=== PATIENT | female | born 1945 | race Caucasian/White ===

== ENCOUNTER → 2017-10-27 | Outpatient (CLI) | payer MEDICARE, OTHER ==
[~2017-10-27] MED LIST: AMOX500; ASCO500; CHOL10002; Coq-10100 MG; Cranberry500 M1; HYDCHL12.5; LOVA40; MELA3; NIAC500 PO; TURMERIC500 MG; VAGIFEM10 MCG; ZYRTEC10 M2
== END | disposition home or self-care (01) ==
LOC: LAB EV 09:38
DX: N39.0 Urinary tract infection, site not specified (principal)
CPT/HCPCS: 87086

== ENCOUNTER 2017-11-29 07:39 | Day surgery (SDC) | payer MEDICARE, OTHER ==
[~2017-11-29] VITALS: Ht 162.6 cm; Wt 75.9 kg
[~2017-11-29 07:39] MED LIST changes: -NIAC500 PO
[2017-11-29] MEDS ORDERED: NIAC500 PO (08:23)
== END 2017-11-29 10:00 | disposition home or self-care (01) ==
LOC: ORSCSDS 07:39
PROVIDERS: Internal Medicine Gastroenterology
PROC: 0DBM8ZX Excision of Descending Colon, Via Natural or Artificial Opening Endoscopic, Diagnostic (ICD-10-PCS; principal; 2017-11-29 09:00)
PROC: 0DBK8ZX Excision of Ascending Colon, Via Natural or Artificial Opening Endoscopic, Diagnostic (ICD-10-PCS; principal; 2017-11-29 09:00)
PROC: 0DBL8ZX Excision of Transverse Colon, Via Natural or Artificial Opening Endoscopic, Diagnostic (ICD-10-PCS; principal; 2017-11-29 09:00)
DX: Z12.11 Encounter for screening for malignant neoplasm of colon (principal); D12.4 Benign neoplasm of descending colon; D12.2 Benign neoplasm of ascending colon; D12.3 Benign neoplasm of transverse colon; I10 Essential (primary) hypertension; Z79.899 Other long term (current) drug therapy
CPT/HCPCS: 88305; J0330; J1980; J2405; J7120

== ENCOUNTER → 2018-04-24 | Outpatient (CLI) | payer MEDICARE, OTHER ==
[~2018-04-24] MED LIST changes: +NIAC500 PO
[2018-04-26 14:11] LABS: HPV 16 Negative (Negative); HPV 18 Negative (Negative); HPV OTHER HR TYPES Negative (Negative)
== END | disposition home or self-care (01) ==
LOC: LAB SHORT 09:54 → LAB 09:54
PROVIDERS: Obstetrics & Gynecology Gynecology
DX: Z91.89 Other specified personal risk factors, not elsewhere classified (principal)
CPT/HCPCS: 87624; G0123

== ENCOUNTER → 2019-05-08 | Outpatient (CLI) | payer MEDICARE, OTHER ==
[2019-05-10 16:07] LABS: HPV 16 Negative (Negative); HPV 18 Negative (Negative); HPV OTHER HR TYPES Negative (Negative)
== END | disposition home or self-care (01) ==
LOC: LAB SHORT 18:06 → LAB 18:06
PROVIDERS: Obstetrics & Gynecology Gynecology
DX: Z91.89 Other specified personal risk factors, not elsewhere classified (principal)
CPT/HCPCS: 87624; G0123

== ENCOUNTER → 2019-08-16 | Outpatient (CLI) | payer MEDICARE, OTHER | END | disposition home or self-care (01) | LOC: LAB SHORT 11:46 → PLD 11:46 | DX: D22.121 Melanocytic nevi of left upper eyelid, including canthus (principal) | CPT/HCPCS: 88305 ==

== ENCOUNTER → 2020-02-17 | Outpatient (CLI) | payer MEDICARE, OTHER | END | disposition home or self-care (01) | LOC: LAB SHORT 08:24 → LAB EV 08:24 | DX: N39.0 Urinary tract infection, site not specified (principal) | CPT/HCPCS: 87086 ==

== ENCOUNTER → 2020-03-19 | Outpatient (CLI) | payer MEDICARE, OTHER | END | disposition home or self-care (01) | LOC: LAB EV 09:27 → LAB SHORT 09:27 | DX: R30.9 Painful micturition, unspecified (principal) | CPT/HCPCS: 87086 ==

== ENCOUNTER → 2020-04-01 | Outpatient (CLI) | payer MEDICARE, OTHER | END | disposition home or self-care (01) | LOC: LAB SHORT 16:00 → LAB 16:00 | DX: N76.0 Acute vaginitis (principal) | CPT/HCPCS: 87070; 87077; 87186; 87205 ==

== ENCOUNTER → 2020-04-17 | Outpatient (CLI) | payer MEDICARE, OTHER | END | disposition home or self-care (01) | LOC: LAB SHORT 09:00 → LAB 09:00 | DX: N76.0 Acute vaginitis (principal) | CPT/HCPCS: 87070; 87205 ==

== ENCOUNTER → 2020-06-17 | Outpatient (CLI) | payer MEDICARE | END | disposition home or self-care (01) | LOC: LAB 12:05 → LAB SHORT 12:05 | DX: D48.5 Neoplasm of uncertain behavior of skin (principal) | CPT/HCPCS: 88305 ==

== ENCOUNTER 2020-10-06 06:38 | Day surgery (SDC) | payer MEDICARE ==
[~2020-10-06] VITALS: Ht 162.6 cm; Wt 75.8 kg
[~2020-10-06 06:38] MED LIST changes: +ASCORBIC ACID500 MG PO; +CRAN-MAX500 MG PO; +HYDROCHLOROTH12.5 MG PO; +VITAMIN D31000 UNI1 PO; +YUVAFEM10 MCG VAG; +ZYRTEC10 M2 PO
--- NOTE | 2020-10-06 07:45 | NUR ---
10/06/20 0745 Holly Hilton PT PREPPED AND READY FOR SURGERY, AWAITING HER TURN. HAS SPOKEN WITH BOTH DR. ANDERSON FOR ANESTHESIA AND . NO QUESTIONS. EYE IS DILATING NICELY. RESTING QUIETLY.
== END 2020-10-06 08:57 | disposition home or self-care (01) ==
LOC: ORSCSDS 06:38
PROVIDERS: Ophthalmology
PROC: 08RJ3JZ Replacement of Right Lens with Synthetic Substitute, Percutaneous Approach (ICD-10-PCS; principal; 2020-10-06 08:00)
DX: H25.11 Age-related nuclear cataract, right eye (principal); I10 Essential (primary) hypertension; E11.9 Type 2 diabetes mellitus without complications; Z79.899 Other long term (current) drug therapy
CPT/HCPCS: J2250; J3010; J3301; V2632

== ENCOUNTER 2021-09-21 00:42 | Inpatient (IN) | payer MEDICARE ==
[~2021-09-21] VITALS: Ht 162.6 cm; Wt 76.4 kg
[2021-09-21] MEDS ORDERED: LOSA50 PO (00:56)
[2021-09-21] MEDS ORDERED: Nitrofurantoin100 M1 PO (00:56)
[2021-09-21 01:34] LABS: Hematocrit 34.5 % (33.0-51.0); Hemoglobin 12.8 g/dL (11.5-16.0); Mean Corpuscular HGB 31.2 pg (26.0-34.0); Mean Corpuscular HGB Conc 37.1 g/dL (31.5-36.5); Mean Corpuscular Volume 84 fL (80-100); Mean Platelet Volume 9.3 fL (9.1-12.4); Platelet Count 299 K/mm3 (150-400); RDW Coefficient Variation 11.6 % (11.7-14.2); RDW Standard Deviation 35.4 fL (35.1-46.3); White Blood Cell Count 12.09 K/mm3 (4.00-11.30)
[2021-09-21 01:45] LABS: BAND PERCENT MAN 6 % (0-8); BASOPHILS PERCENT MAN 0 % (0-2); EOSINOPHILS ABSOLUTE MAN 0.24 K/mm3 (0.00-0.68); EOSINOPHILS PERCENT MAN 2 % (0-6); LYMPHOCYTES ABSOLUTE MAN 1.08 K/mm3 (0.84-5.20); LYMPHOCYTES PERCENT MAN 9 % (21-46); MONOCYTES ABSOLUTE MAN 0.72 K/mm3 (0.16-1.47); MONOCYTES PERCENT MAN 6 % (4-13); NEUTROPHILS ABSOLUTE MAN 10.03 K/mm3 (1.96-9.15); SEG NEUTROPHILS PERCENT MAN 77 % (41-73); TOTAL CELLS COUNTED 100
[2021-09-21 01:58] LABS: International Normalized Ratio 0.96; Prothrombin Time Results 10.1 Sec (9.7-11.5)
[2021-09-21 02:17] LABS: Alanine Aminotransfer (ALT/SGP 36 U/L (12-78); Albumin, Blood 3.3 g/dL (3.4-5.0); Albumin/Globulin Ratio 0.8 (0.8-1.8); Alk Phos 50 U/L (50-136); Anion Gap 12 mmol/L (6-16); Aspartate Aminotrans (AST/SGOT 42 U/L (12-37); Bilirubin, Total 1.5 mg/dL (0.1-1.0); Blood Urea Nitrogen 11 mg/dL (8-24); Bun/Creatinine Ratio 20.9 (12.0-20.0); CO2, Blood 21 mmol/L (21-32); Calcium, Blood 8.2 mg/dL (8.5-10.1); Chloride, Blood 83 mmol/L (98-108); Creatinine, Blood 0.53 mg/dL (0.40-1.00); Globulin, Blood 4.3 g/dL (2.2-4.0); Glomerular Filtration Rate >60 (60-); Glucose, Blood 143 mg/dL (70-99); Potassium, Blood 3.7 mmol/L (3.5-5.5); Sodium, Blood 116 mmol/L (136-145); Total Protein, Blood 7.6 g/dL (6.4-8.2)
[2021-09-21 03:28] LABS: Osmolality, Serum 243 mos/KG (275-300)
[2021-09-21 03:55] LABS: Influenza A, PCR NEGATIVE (NEGATIVE); Influenza B, PCR NEGATIVE (NEGATIVE); Resp Syncytial Virus, PCR NEGATIVE (NEGATIVE); SARS-Cov-2 (COVID-19) PCR, MMC NEGATIVE (NEGATIVE)
[2021-09-21 04:01] LABS: Source, Urine Clean Catch
[2021-09-21 04:10] LABS: Bilirubin, Urine Neg (Neg); Blood, Urine Neg (Neg); Glucose Qualitative, Urine Neg (Neg); Ketones, Urine 1+ (Neg); Leukocyte Esterase, Urine Neg (Neg); Nitrite, Urine Neg (Neg); Protein, Urine 2+ (Neg); Urobilinogen, Urine NORM (Normal)
[2021-09-21 04:33] LABS: Appearance, Urine Clear (Clear); Color, Urine Yellow (P-Yellow)
[2021-09-21 04:34] LABS: Red Blood Cells, Urine Not Seen /hpf (0-2); Squamous Epithelial Cells Few /hpf (Few); White Blood Cells, Urine Not Seen /hpf (0-5)
[2021-09-21 04:35] LABS: Amorphous Light (0-Heavy); Bacteria Rare /hpf
--- NOTE | 2021-09-21 05:00 | NUR ---
ASSUMED CARE PATIENT ARRIVED TO ICU A&O X 4. TRACKS TO SOUND AND FOLLOWS COMMANDS. 0.9% NACL INF WIDE OPEN INTO 20G IV IN LT FOREARM. 22G IV IN RT HAND SALINE LOCKED. PATIENT C/O NAUSEA AND HAS EMESIS BAG IN HAND, BUT STATES THAT IT IS IMPROVED FROM EARLIER IN THE ER. REPORT COMPLETED W/ ED RN.
--- NOTE | 2021-09-21 06:26 | NUR ---
SHIFT SUMMARY/AWAITING 3% NACL AWAITING 3% NACL FROM PHARMACY TO BEGIN INF. POWERGLIDE STARTED TO JUAN JOSE. PATIENT WAS ABLE TO STAND TO BEDSIDE COMMODE WITH STAFF ASSISTANCE. PATIENT REMAINED A&O X 4, ABLE TO ANSWER QUESTIONS APPROPRIATELY. NO VOMITING OR DIARRHEA SINCE ARRIVING FROM ED. LUNGS CLEAR T/O, ON ROOM AIR W/ SPO2 IN 90'S. NO OTHER CHANGES DURING SHIFT.
[2021-09-21 08:37] LABS: Anion Gap 11 mmol/L (6-16); Blood Urea Nitrogen 7 mg/dL (8-24); Bun/Creatinine Ratio 13.3 (12.0-20.0); CO2, Blood 22 mmol/L (21-32); Calcium, Blood 7.9 mg/dL (8.5-10.1); Chloride, Blood 89 mmol/L (98-108); Creatinine, Blood 0.53 mg/dL (0.40-1.00); Glomerular Filtration Rate >60 (60-); Glucose, Blood 105 mg/dL (70-99); Potassium, Blood 3.5 mmol/L (3.5-5.5); Sodium, Blood 122 mmol/L (136-145)
--- NOTE | 2021-09-21 11:17 | NUR ---
Pt. was alert and sitting up in bed. Nurse was finishing taking vitals. Quickly established rapport as pt. as I know her and her family. Pt. was in a pretty positive disposition, but was slightly unsettled by her hospitalization and getting a clear diagnosis of her health complications. Normalized the sitiuation. Listened epathetically until we were interrupted by a Code Red. Prayed with pt. and will monitor to see if she is getting any clarity about her diagnosis.
--- NOTE | 2021-09-21 14:06 | NUR ---
PT TRANSFERED TO UNIT RECIEVED REPORT VIA [employer] @ APPROX. 1350. PT TRANSFERED TO UNIT @ THIS TIME. ABLE TO SELF TRANSFER FROM WC TO BED. ORIENTATED TO ROOM. CALL LIGHT W/ IN REACH. DENIES N/V OR DIZZINESS @ THIS TIME. SPOUSE @ BEDSIDE @ THIS TIME.
[2021-09-21 14:09] LABS: Anion Gap 8 mmol/L (6-16); Blood Urea Nitrogen 7 mg/dL (8-24); Bun/Creatinine Ratio 9.4 (12.0-20.0); CO2, Blood 24 mmol/L (21-32); Calcium, Blood 8.1 mg/dL (8.5-10.1); Chloride, Blood 99 mmol/L (98-108); Creatinine, Blood 0.75 mg/dL (0.40-1.00); Glomerular Filtration Rate >60 (60-); Glucose, Blood 112 mg/dL (70-99); Potassium, Blood 3.6 mmol/L (3.5-5.5); Sodium, Blood 131 mmol/L (136-145)
[2021-09-21] MEDS ORDERED: MULTI-VITAMIN1 EAC2 PO (15:53)
[2021-09-21] MEDS ORDERED: Vitamin B Comple1 EA PO (15:54)
[2021-09-21] MEDS ORDERED: Magnesium250 MG PO (15:56)
[2021-09-21] MEDS ORDERED: CALCIUM 500-VI1 EAC6 PO (15:56)
[2021-09-21] MEDS ORDERED: ZINC50 M3 PO (16:01)
[2021-09-21] MEDS ORDERED: OMEGA-3 PO (16:02)
[2021-09-21] MEDS ORDERED: NIAC500 PO (16:03)
[2021-09-21] MEDS ORDERED: TURMERIC500 M2 PO (16:04)
[2021-09-21] MEDS ORDERED: XYZAL5 MG PO (16:05)
--- NOTE | 2021-09-21 17:13 | NUR ---
SHIFT SUMMARY PT A&O X4 AND IN PLEASENT MOOD SINCE ARRIVAL TO UNIT. TOLERATING PO INTAKE. PT @ BEDSIDE DURING VISITING HOURS. DENIES N/V AND DIZZINESS. VSS. CALL LIGHT W/IN REACH.
[2021-09-21 19:41] LABS: Anion Gap 9 mmol/L (6-16); Blood Urea Nitrogen 10 mg/dL (8-24); Bun/Creatinine Ratio 11.9 (12.0-20.0); CO2, Blood 24 mmol/L (21-32); Chloride, Blood 100 mmol/L (98-108); Creatinine, Blood 0.84 mg/dL (0.40-1.00); Glomerular Filtration Rate >60 (60-); Glucose, Blood 126 mg/dL (70-99); Potassium, Blood 3.8 mmol/L (3.5-5.5); Sodium, Blood 133 mmol/L (136-145)
[2021-09-22 01:16] LABS: BASOPHILS ABSOLUTE AUTO 0.04 K/mm3 (0.00-0.23); BASOPHILS PERCENT AUTO 1 % (0-2); EOSINOPHILS PERCENT AUTO 1 % (0-6); Hematocrit 32.9 % (33.0-51.0); Hemoglobin 11.5 g/dL (11.5-16.0); IMMATURE GRAN ABSOLUTE AUTO 0.04 K/mm3 (0.00-0.10); IMMATURE GRAN PERCENT AUTO 1 % (0-1); LYMPHOCYTES ABSOLUTE AUTO 2.76 K/mm3 (0.84-5.20); LYMPHOCYTES PERCENT AUTO 33 % (21-46); MONOCYTES ABSOLUTE AUTO 0.79 K/mm3 (0.16-1.47); MONOCYTES PERCENT AUTO 9 % (4-13); Mean Corpuscular HGB 30.4 pg (26.0-34.0); Mean Corpuscular Volume 87 fL (80-100); Mean Platelet Volume 9.2 fL (9.1-12.4); NEUTROPHILS ABSOLUTE AUTO 4.77 K/mm3 (1.96-9.15); NEUTROPHILS PERCENT AUTO 56 % (41-73); Platelet Count 292 K/mm3 (150-400); RDW Coefficient Variation 12.3 % (11.7-14.2); RDW Standard Deviation 39.7 fL (35.1-46.3); Red Blood Cell Count 3.78 M/mm3 (3.80-5.20)
[2021-09-22 02:03] LABS: Albumin, Blood 3.2 g/dL (3.4-5.0); Anion Gap 7 mmol/L (6-16); Blood Urea Nitrogen 13 mg/dL (8-24); Bun/Creatinine Ratio 16.5 (12.0-20.0); CO2, Blood 24 mmol/L (21-32); Chloride, Blood 103 mmol/L (98-108); Creatinine, Blood 0.79 mg/dL (0.40-1.00); Glomerular Filtration Rate >60 (60-); Glucose, Blood 98 mg/dL (70-99); Magnesium, Blood 2.3 mg/dL (1.6-2.4); Phosphorus, Blood 2.6 mg/dL (2.5-4.9); Sodium, Blood 134 mmol/L (136-145)
--- NOTE | 2021-09-22 05:56 | NUR ---
SHIFT SUMMARY NO ACUTE CHANGES. AOX3. SLOW TO RESPOND @TIMES. VSS. DENIES ANY DIZZINESS, GEE, PAIN, N/V/D OR DYSPNEA. LAST NA @134 THIS AM. PT HASNT HAD A BM SINCE BEING AT HOSPITAL. IND IN RM, CALL LIGHT IN REACH. WCTM.
[2021-09-22] MEDS ORDERED: ACET325 PO (11:41)
[2021-09-22] MEDS ORDERED: CEFD300 PO (11:43)
--- NOTE | 2021-09-22 12:42 | NUR ---
Pt. was sitting up in bed. Staff is preparing to discharge pt. this morning. Pt. showed confidence with regard to managing her health, but showed distress over a broken relationship with one of her [place] daughters. Provided empathetic listening, pastoral food counselor. Pt. displayed evidence of reduced stress, and verbalized an interest in bringing healing to the relationship. Prayed with pt. Discharge will happen today.
--- NOTE | 2021-09-22 13:47 | NUR ---
DISCHARGE PT DISCHARGED @ THIS TIME. PT PROVIDED W/ WRITTEN AND VERBAL DC INSTRUCTION, SPOUSE @ BEDSIDE. PT AND SPOUSE VERBALIZED UNDERSTANDING OF INSTRUCTION. VSS. TOLERATING PO INTAKE, DENIES N/V OR DIZZINESS. POWERGLIDE DC'ED. BELONGINGS IN HAND. ESCORTED TO [facility] VIA WC, SPOUSE PROVIDED TRANSPORT.
== END 2021-09-22 13:54 | disposition home or self-care (01) | DRG 872 ==
LOC: ER 00:42 → ICUW 05:14 → ICUE 05:14 → MEDS 13:59
PROVIDERS: Family Medicine; Student in an Organized Health Care Education/Training Program; ADMIT Internal Medicine
DX: A41.9 Sepsis, unspecified organism (principal); E87.1 Hypo-osmolality and hyponatremia; N39.0 Urinary tract infection, site not specified; R11.2 Nausea with vomiting, unspecified; Z20.822 Contact with and (suspected) exposure to COVID-19; R19.7 Diarrhea, unspecified; I10 Essential (primary) hypertension; Z90.89 Acquired absence of other organs; Z98.890 Other specified postprocedural states; Z88.6 Allergy status to analgesic agent; Z79.899 Other long term (current) drug therapy
CPT/HCPCS: 0241U; 80048; 80053; 80069; 81001; 83605; 83735; 83930; 83935; 84300; 84443; 85025; 85610; 85730; 86850; 86900; 86901; 93005; 93010; 96361; 96374; 99285-25; A9270; C1751; J0696; J1650; J2405; J7030; J7050

== ENCOUNTER → 2021-10-20 | Outpatient (CLI) | payer MEDICARE ==
[~2021-10-20] MED LIST changes: +ACET325 PO; +CALCIUM 500-VI1 EAC6 PO; +CEFD300 PO; +LOSA50 PO; +MULTI-VITAMIN1 EAC2 PO; +Magnesium250 MG PO; +Nitrofurantoin100 M1 PO; +OMEGA-3 PO; +TURMERIC500 M2 PO; +Vitamin B Comple1 EA PO; +XYZAL5 MG PO; +ZINC50 M3 PO
== END | disposition home or self-care (01) ==
LOC: LAB SHORT 08:30 → LAB 08:30
DX: A49.9 Bacterial infection, unspecified (principal); L57.0 Actinic keratosis; L82.0 Inflamed seborrheic keratosis; L29.8 Other pruritus
CPT/HCPCS: 87070; 87205

== ENCOUNTER → 2021-11-08 | Outpatient (CLI) | payer MEDICARE | END | disposition home or self-care (01) | LOC: LAB SHORT 10:23 → LAB 10:23 | DX: L70.0 Acne vulgaris (principal); A49.9 Bacterial infection, unspecified; D48.5 Neoplasm of uncertain behavior of skin | CPT/HCPCS: 87070 ==

== ENCOUNTER 2022-04-27 09:00 | Day surgery (SDC) | payer MEDICARE ==
[~2022-04-27] VITALS: Ht 162.6 cm; Wt 72.2 kg
[~2022-04-27 09:00] MED LIST changes: +Amlodipine Bes2.5 MG PO; +ESTRADIOL1 MG PO; +HYDCHL25 PO
== END 2022-04-27 11:28 | disposition home or self-care (01) ==
LOC: ORSCSDS 09:00
PROVIDERS: Internal Medicine Gastroenterology
PROC: 0DBM8ZX Excision of Descending Colon, Via Natural or Artificial Opening Endoscopic, Diagnostic (ICD-10-PCS; principal; 2022-04-27 10:30)
DX: R11.2 Nausea with vomiting, unspecified (principal); K63.5 Polyp of colon; K57.30 Diverticulosis of large intestine without perforation or abscess without bleeding; R10.84 Generalized abdominal pain; R19.4 Change in bowel habit; Z86.010 Personal history of colon polyps; Z79.899 Other long term (current) drug therapy
CPT/HCPCS: 88305; J2704; J7120

== ENCOUNTER → 2022-05-09 | Outpatient (CLI) | payer MEDICARE ==
[2022-05-10 10:54] LABS: Appearance, Urine Clear (Clear); Bilirubin, Urine Neg (Neg); Blood, Urine Neg (Neg); Color, Urine Yellow (P-Yellow); Glucose Qualitative, Urine Neg (Neg); Ketones, Urine Neg (Neg); Leukocyte Esterase, Urine Neg (Neg); Nitrite, Urine Neg (Neg); Protein, Urine Neg (Neg); Urobilinogen, Urine NORM (Normal)
== END | disposition home or self-care (01) ==
LOC: LAB SHORT 15:55
PROVIDERS: Nurse Practitioner Family
DX: E78.49 Other hyperlipidemia (principal); I10 Essential (primary) hypertension
CPT/HCPCS: 81003

== ENCOUNTER 2023-01-31 07:08 | Day surgery (SDC) | payer MEDICARE, OTHER ==
[~2023-01-31] VITALS: Ht 162.6 cm; Wt 77.4 kg
[2023-01-31] MEDS ORDERED: PROGESTERONE MICRONI (07:50)
[2023-01-31] MEDS ORDERED: HYOS.125 (07:51)
[2023-01-31 09:21] VITALS: BP 138/61
== END 2023-01-31 09:34 | disposition home or self-care (01) ==
LOC: ORSCSDS 07:08
PROVIDERS: Ophthalmology
PROC: 080N0ZZ Alteration of Right Upper Eyelid, Open Approach (ICD-10-PCS; principal; 2023-01-31 08:30)
PROC: 080P0ZZ Alteration of Left Upper Eyelid, Open Approach (ICD-10-PCS; principal; 2023-01-31 08:30)
DX: H02.831 Dermatochalasis of right upper eyelid (principal); H02.834 Dermatochalasis of left upper eyelid; I10 Essential (primary) hypertension; E66.9 Obesity, unspecified; Z68.29 Body mass index [BMI] 29.0-29.9, adult; Z79.899 Other long term (current) drug therapy
CPT/HCPCS: A9270; J2250; J2704; J3010; J7040

== ENCOUNTER 2025-04-06 18:49 | Emergency (ER) | payer MEDICARE, OTHER ==
[~2025-04-06] VITALS: Ht 162.6 cm; Wt 76.2 kg
[~2025-04-06 18:49] MED LIST changes: +HYOS.125; +PROGESTERONE MICRONI
[2025-04-06 19:50] LABS: BASOPHILS ABSOLUTE AUTO 0.06 K/mm3 (0.00-0.23); BASOPHILS PERCENT AUTO 1 % (0-2); EOSINOPHILS ABSOLUTE AUTO 0.19 K/mm3 (0.00-0.68); EOSINOPHILS PERCENT AUTO 2 % (0-6); Hematocrit 36.5 % (33.0-51.0); Hemoglobin 11.9 g/dL (11.5-16.0); IMMATURE GRAN ABSOLUTE AUTO 0.02 K/mm3 (0.00-0.10); IMMATURE GRAN PERCENT AUTO 0 % (0-1); LYMPHOCYTES ABSOLUTE AUTO 2.13 K/mm3 (0.84-5.20); LYMPHOCYTES PERCENT AUTO 23 % (21-46); MONOCYTES ABSOLUTE AUTO 0.65 K/mm3 (0.16-1.47); MONOCYTES PERCENT AUTO 7 % (4-13); Mean Corpuscular HGB Conc 32.6 g/dL (31.5-36.5); Mean Corpuscular Volume 91 fL (80-100); NEUTROPHILS ABSOLUTE AUTO 6.13 K/mm3 (1.96-9.15); NEUTROPHILS PERCENT AUTO 67 % (41-73); NRBC ABSOLUTE 0.00 K/mm3 (0.00-0.02); NRBC Auto 0.0 /100 WBC (0.0-0.2); Platelet Count 255 K/mm3 (150-400); RDW Coefficient Variation 12.5 % (11.7-14.2); RDW Standard Deviation 41.6 fL (35.1-46.3)
[2025-04-06 20:10] LABS: Alanine Aminotransfer (ALT/SGP 26.0 U/L (12-78); Albumin, Blood 3.3 g/dL (3.4-5.0); Albumin/Globulin Ratio 0.8 (0.8-1.8); Anion Gap 9.0 mmol/L (3-11); Aspartate Aminotrans (AST/SGOT 20.0 U/L (12-37); Bilirubin, Total 0.4 mg/dL (0.1-1.0); Blood Urea Nitrogen 17.0 mg/dL (8-24); CO2, Blood 24.0 mmol/L (21-32); Calcium, Blood 8.7 mg/dL (8.5-10.1); Chloride, Blood 101.0 mmol/L (98-108); Creatinine, Blood 0.71 mg/dL (0.40-1.00); Globulin, Blood 4.1 g/dL (2.2-4.0); Glucose, Blood 121.0 mg/dL (70-99); Potassium, Blood 3.6 mmol/L (3.5-5.5); Sodium, Blood 130.0 mmol/L (136-145); Total Protein, Blood 7.4 g/dL (6.4-8.2)
[2025-04-06 21:39] VITALS: BP 154/65
== END 2025-04-06 21:48 | disposition home or self-care (01) ==
LOC: ER 18:49
PROVIDERS: Emergency Medicine
DX: H81.399 Other peripheral vertigo, unspecified ear (principal); E87.1 Hypo-osmolality and hyponatremia; I10 Essential (primary) hypertension; E78.5 Hyperlipidemia, unspecified; Z88.5 Allergy status to narcotic agent; Z88.8 Allergy status to other drugs, medicaments and biological substances; Z79.899 Other long term (current) drug therapy
CPT/HCPCS: 70450; 80053; 85025; 93005; 93010; 99285-25